=== PATIENT | female | born 1935 | race Hispanic/Latino ===

== ENCOUNTER 2023-08-13 11:28 | Inpatient (IN) | payer OTHER ==
[2023-08-13] MEDS ORDERED: Lorazepam 2 MG/ML VIAL ONE (11:46)
[2023-08-13 12:30] LABS: #Basophils 0.1 10x3/uL (0.0-0.2); #Monocytes 0.4 10x3/uL (0.0-1.1); #Neutrophils 11.8 10x3/uL (1.5-8.4); %Basophils 0.4 % (0.0-2.0); %Monocytes 3.2 % (0.0-10.0); %Neutrophils 88.1 % (40.0-75.0); Hematocrit 41.8 % (34.9-44.5); Hemoglobin 12.6 g/dL (12.0-15.5); Mean Corpuscular HGB CONC 30.1 g/dL (32.0-36.0); Mean Corpuscular Hemoglobin 29.3 pg (27.0-33.0); Mean Corpuscular Volume 97.2 fl (81.6-98.3); Mean Platelet Volume 12.2 fl (7.4-10.4); Platelet Count 185 10x3/uL (150-450); RBC Distribution Width 15.7 % (11.5-14.5); White Blood Cell (WBC) Count 13.4 10x3/uL (3.5-10.5)
[2023-08-13 12:55] LABS: ALT (SGPT) 25 U/L (8-55); AST (SGOT) 35 U/L (5-34); Albumin 3.4 g/dL (3.4-4.8); Alkaline Phosphatase 75 U/L (40-110); Anion Gap 20 mmol/L (10-20); BUN (Urea Nitrogen) 52 mg/dL (9.8-20.1); Bilirubin, Total 0.6 mg/dL (0.2-1.2); Calc. Creatinine Clearance 0 mL/min (70-130); Calcium 9.2 mg/dL (7.8-10.44); Carbon Dioxide 20 mmol/L (23-31); Chloride 126 mmol/L (98-107); Critical Call Chem Troponin I NUR.DG3@1254; Critical Call Chemistry NUR.DG3@1254; Estimated GFR 48; Globulin 3.6 g/dL (2.4-3.5); Glucose 178 mg/dL (83-110); Potassium 2.7 mmol/L (3.5-5.1); Sodium 163 mmol/L (136-145)
[2023-08-13 14:37] LABS: Magnesium 2.8 mg/dL (1.6-2.6)
[2023-08-13 15:34] LABS: Lactic Acid 3.2 mmol/L (0.5-2.2)
[2023-08-13 15:48] LABS: Troponin I 1.179 ng/mL (< 0.028)
[2023-08-13] MEDS ORDERED: hydrALAZINE 20 MG/ML VIAL SLOW IVP PRN (15:55)
[2023-08-13] MEDS ORDERED: Labetalol HCl 100 MG/20 ML VIAL SLOW IVP PRN (16:59)
[2023-08-13] MEDS: Dextrose 5% in Water 1,000 ML IV SCH (17:07)
[2023-08-13] MEDS ORDERED: Aspirin 300 MG Suppository ONE (17:10)
[2023-08-13] MEDS: Potassium Chloride 20 MEQ in Premix 1 BAG IVPB SCH (17:14)
[2023-08-13] MEDS: Aspirin 300 MG Suppository PR SCH (17:14)
[2023-08-13] MEDS ORDERED: hydrALAZINE 20 MG/ML VIAL ONE (17:16)
[2023-08-13] MEDS: hydrALAZINE 20 MG/ML VIAL SLOW IVP PRN (17:34)
[2023-08-13] MEDS ORDERED: Potassium Chloride 20 MEQ (100 mL) BAG ONE (17:36)
[2023-08-13] MEDS: Heparin 5,000 UNITS/ML VIAL SC SCH (20:30)
[2023-08-13 22:27] LABS: Anion Gap 19 mmol/L (10-20); BUN (Urea Nitrogen) 56 mg/dL (9.8-20.1); Calc. Creatinine Clearance 21 mL/min (70-130); Calcium 8.8 mg/dL (7.8-10.44); Carbon Dioxide 19 mmol/L (23-31); Chloride 125 mmol/L (98-107); Estimated GFR 47; Glucose 198 mg/dL (83-110); Potassium 3.1 mmol/L (3.5-5.1)
[2023-08-13 22:32] LABS: Critical Call Chemistry @NOTIFIED ICU.AW2; Sodium 160 mmol/L (136-145)
[2023-08-14 07:56] LABS: Anion Gap 14 mmol/L (10-20); BUN (Urea Nitrogen) 58 mg/dL (9.8-20.1); Calc. Creatinine Clearance 22 mL/min (70-130); Calcium 8.3 mg/dL (7.8-10.44); Carbon Dioxide 20 mmol/L (23-31); Chloride 124 mmol/L (98-107); Estimated GFR 50; Glucose 187 mg/dL (83-110); Potassium 3.2 mmol/L (3.5-5.1)
[2023-08-14 08:00] LABS: Critical Call Chemistry ICU.SP @0758; Sodium 155 mmol/L (136-145)
[2023-08-14 08:29] LABS: #Eosinphils 0.1 10x3/uL (0.0-0.5); #Monocytes 0.5 10x3/uL (0.0-1.1); #Neutrophils 9.6 10x3/uL (1.5-8.4); %Basophils 0.3 % (0.0-2.0); %Eosinophils 0.6 % (0.0-6.0); %Lymphocytes 17.3 % (18.0-47.0); %Monocytes 4.2 % (0.0-10.0); %Neutrophils 77.4 % (40.0-75.0); Hematocrit 35.6 % (34.9-44.5); Hemoglobin 11.1 g/dL (12.0-15.5); Mean Corpuscular HGB CONC 31.2 g/dL (32.0-36.0); Mean Corpuscular Hemoglobin 29.7 pg (27.0-33.0); Mean Corpuscular Volume 95.2 fl (81.6-98.3); Mean Platelet Volume 12.7 fl (7.4-10.4); Platelet Count 116 10x3/uL (150-450); RBC Distribution Width 15.9 % (11.5-14.5); Red Blood Cell (RBC) Count 3.74 10x6/uL (3.90-5.03); White Blood Cell (WBC) Count 11.4 10x3/uL (3.5-10.5)
[2023-08-14] MEDS: Aspirin 300 MG Suppository PR SCH (08:54)
[2023-08-14] MEDS: Potassium Chloride 20 MEQ in Premix 1 BAG IVPB SCH (08:56)
[2023-08-14] MEDS: Dextrose 5% in Water 1,000 ML IV SCH (08:58)
[2023-08-14 14:01] LABS: Anion Gap 12 mmol/L (10-20); BUN (Urea Nitrogen) 55 mg/dL (9.8-20.1); Calc. Creatinine Clearance 24 mL/min (70-130); Calcium 8.1 mg/dL (7.8-10.44); Carbon Dioxide 21 mmol/L (23-31); Chloride 122 mmol/L (98-107); Estimated GFR 55; Glucose 221 mg/dL (83-110); Potassium 4.1 mmol/L (3.5-5.1)
[2023-08-14 14:07] LABS: Critical Call Chemistry ICU.RH1@!1406; Sodium 151 mmol/L (136-145)
[2023-08-14 14:12] LABS: Critical Call Chem Troponin I ICU.RH1@1412; Troponin I 1.192 ng/mL (< 0.028)
[2023-08-14 19:08] LABS: Anion Gap 15 mmol/L (10-20); BUN (Urea Nitrogen) 54 mg/dL (9.8-20.1); Calc. Creatinine Clearance 26 mL/min (70-130); Calcium 8.1 mg/dL (7.8-10.44); Carbon Dioxide 18 mmol/L (23-31); Chloride 121 mmol/L (98-107); Estimated GFR 58; Glucose 219 mg/dL (83-110); Potassium 3.9 mmol/L (3.5-5.1); Sodium 150 mmol/L (136-145)
[2023-08-14] MEDS: Fluticasone Propionate Nasal Spray 16 gm Bottle NASAL SCH (21:16)
[2023-08-14] MEDS: Acetaminophen 650 MG Suppository PR PRN (21:17)
[2023-08-15 07:28] LABS: Hematocrit 37.1 % (34.9-44.5); Hemoglobin 11.5 g/dL (12.0-15.5); MDiff Complete? YES; Mean Corpuscular Hemoglobin 29.5 pg (27.0-33.0); Mean Corpuscular Volume 95.1 fl (81.6-98.3); Mean Platelet Volume 12.3 fl (7.4-10.4); Platelet Count 127 10x3/uL (150-450); RBC Distribution Width 15.4 % (11.5-14.5); White Blood Cell (WBC) Count 8.6 10x3/uL (3.5-10.5)
[2023-08-15 07:36] LABS: Anion Gap 14 mmol/L (10-20); BUN (Urea Nitrogen) 50 mg/dL (9.8-20.1); Calc. Creatinine Clearance 28 mL/min (70-130); Calcium 8.1 mg/dL (7.8-10.44); Carbon Dioxide 18 mmol/L (23-31); Chloride 114 mmol/L (98-107); Estimated GFR 65; Glucose 190 mg/dL (83-110); Potassium 3.6 mmol/L (3.5-5.1); Sodium 142 mmol/L (136-145)
[2023-08-15 08:16] LABS: Band 12 % (5-11); Neutrophil 74 % (42-75)
[2023-08-15 08:17] LABS: Monocytes 4 % (0-10)
[2023-08-15 08:18] LABS: Lymphocytes 8 % (21-51); Reactive Lymphocytes 2 % (0-10)
[2023-08-15 08:22] LABS: Burr Cells SLIGHT = 2-5 cells (100X) (0-1/hpf)
[2023-08-15] MEDS: Dextrose 5 % And 0.9 % NaCl 1,000 ML IV SCH (08:41)
[2023-08-15] MEDS: Ciprofloxacin 0.3% Ophth Soln 2.5 ml Bottle EA EYE SCH (12:06)
[2023-08-15] MEDS: Latanoprost 0.005% Ophth Soln 2.5 ml Bottle EA EYE SCH (21:08)
[2023-08-16] MEDS: D5W-AA 4.25% with LYTES 1,000 ML IV SCH (00:39)
[2023-08-16 07:48] LABS: Anion Gap 12 mmol/L (10-20); BUN (Urea Nitrogen) 87 mg/dL (9.8-20.1); Calc. Creatinine Clearance 25 mL/min (70-130); Calcium 7.9 mg/dL (7.8-10.44); Carbon Dioxide 16 mmol/L (23-31); Chloride 112 mmol/L (98-107); Estimated GFR 55; Glucose 262 mg/dL (83-110); Potassium 3.4 mmol/L (3.5-5.1); Sodium 137 mmol/L (136-145)
[2023-08-16 08:28] LABS: Hematocrit 28.4 % (34.9-44.5); Hemoglobin 9.4 g/dL (12.0-15.5); Mean Corpuscular HGB CONC 33.1 g/dL (32.0-36.0); Mean Corpuscular Hemoglobin 30.4 pg (27.0-33.0); Mean Corpuscular Volume 91.9 fl (81.6-98.3); RBC Distribution Width 15.2 % (11.5-14.5); Red Blood Cell (RBC) Count 3.09 10x6/uL (3.90-5.03); White Blood Cell (WBC) Count 9.8 10x3/uL (3.5-10.5)
[2023-08-16] MEDS: Bacitracin-Polymyxin B Opth Oint 3.5 GM TUBE L EYE PRN (08:50)
[2023-08-16 08:53] LABS: MDiff Complete? YES
[2023-08-16 08:55] LABS: Mean Platelet Volume 13.4 fl (7.4-10.4); Platelet Count 93 10x3/uL (150-450)
[2023-08-16 09:53] LABS: Band 16 % (5-11); Lymphocytes 6 % (21-51); Monocytes 3 % (0-10); Neutrophil 72 % (42-75); Reactive Lymphocytes 3 % (0-10)
[2023-08-16 09:55] LABS: Platelet Adequacy Comment Appears Decreased
[2023-08-16 09:59] LABS: Burr Cells SLIGHT = 2-5 cells (100X) (0-1/hpf)
[2023-08-16 17:53] LABS: Anion Gap 11 mmol/L (10-20); BUN (Urea Nitrogen) 95 mg/dL (9.8-20.1); Calc. Creatinine Clearance 28 mL/min (70-130); Calcium 7.9 mg/dL (7.8-10.44); Carbon Dioxide 17 mmol/L (23-31); Chloride 112 mmol/L (98-107); Estimated GFR 64; Glucose 227 mg/dL (83-110); Potassium 3.4 mmol/L (3.5-5.1); Sodium 137 mmol/L (136-145)
[2023-08-16] MEDS: cefTRIAXone\\ROCEPHIN 1 GM in Sodium Chloride 0.9% 100 ML IVPB SCH (19:27)
[2023-08-17 03:02] LABS: Bilirubin Neg (Negative); Blood, Urine 25 (Negative); Clarity Clear (Clear); Glucose, Urine (Dipstick) Normal (Negative); Ketone, Urine Negative (Negative); Leukocyte 500 (Negative); Nitrite Negative (Negative); Protein, Urine (Dipstick) 30 mg/dl (Neg-Trace); Urobilinogen Normal mg/dL (Less than 2); pH, Urine 6.5 (5.0-9.0)
[2023-08-17 03:21] LABS: Bacteria/HPF 2+ HPF (None Seen); CAUTI Indications for Culture Alt mental st,lethar; RBC/HPF 0-3 HPF (0-3); Squamous Epithelial 0-3 HPF (0-3); WBC/HPF 21-50 HPF (0-3)
[2023-08-17 03:24] LABS: Urine Culture Reflex Yes Yes
[2023-08-17 06:50] LABS: Anion Gap 13 mmol/L (10-20); BUN (Urea Nitrogen) 99 mg/dL (9.8-20.1); Calc. Creatinine Clearance 30 mL/min (70-130); Carbon Dioxide 16 mmol/L (23-31); Chloride 112 mmol/L (98-107); Estimated GFR 70; Glucose 142 mg/dL (83-110); Potassium 3.1 mmol/L (3.5-5.1); Sodium 138 mmol/L (136-145)
[2023-08-17 07:10] LABS: Hematocrit 26.4 % (34.9-44.5); Hemoglobin 8.7 g/dL (12.0-15.5); Mean Corpuscular Hemoglobin 29.8 pg (27.0-33.0); Mean Corpuscular Volume 90.4 fl (81.6-98.3); Mean Platelet Volume 12.8 fl (7.4-10.4); Platelet Count 95 10x3/uL (150-450); RBC Distribution Width 15.1 % (11.5-14.5); Red Blood Cell (RBC) Count 2.92 10x6/uL (3.90-5.03); White Blood Cell (WBC) Count 7.1 10x3/uL (3.5-10.5)
[2023-08-17 07:12] LABS: MDiff Complete? YES
[2023-08-17 08:28] LABS: Band 1 % (5-11); Lymphocytes 11 % (21-51); Monocytes 4 % (0-10); Neutrophil 84 % (42-75)
[2023-08-17 08:29] LABS: Platelet Adequacy Comment Appears Decreased
[2023-08-17 08:30] LABS: Burr Cells SLIGHT = 2-5 cells (100X) (0-1/hpf)
[2023-08-17] MEDS: Potassium Chloride 10 MEQ in Premix 1 BAG IVPB SCH (12:28)
[2023-08-17] MEDS: Pantoprazole 40 MG VIAL IVP SCH (20:54)
[2023-08-18 08:30] LABS: #Eosinphils 0.1 10x3/uL (0.0-0.5); #Monocytes 0.3 10x3/uL (0.0-1.1); #Neutrophils 5.7 10x3/uL (1.5-8.4); %Basophils 0.1 % (0.0-2.0); %Eosinophils 1.8 % (0.0-6.0); %Neutrophils 84.7 % (40.0-75.0); Hematocrit 27.6 % (34.9-44.5); Mean Corpuscular HGB CONC 32.6 g/dL (32.0-36.0); Mean Corpuscular Hemoglobin 30.2 pg (27.0-33.0); Mean Corpuscular Volume 92.6 fl (81.6-98.3); Mean Platelet Volume 13.4 fl (7.4-10.4); Platelet Count 63 10x3/uL (150-450); RBC Distribution Width 15.3 % (11.5-14.5); Red Blood Cell (RBC) Count 2.98 10x6/uL (3.90-5.03); White Blood Cell (WBC) Count 6.8 10x3/uL (3.5-10.5)
[2023-08-18 08:32] LABS: Platelet Adequacy Comment Appears Decreased
[2023-08-18 11:41] LABS: Anion Gap 12 mmol/L (10-20); BUN (Urea Nitrogen) 96 mg/dL (9.8-20.1); Calc. Creatinine Clearance 31 mL/min (70-130); Calcium 8.2 mg/dL (7.8-10.44); Carbon Dioxide 17 mmol/L (23-31); Chloride 114 mmol/L (98-107); Estimated GFR 74; Glucose 188 mg/dL (83-110); Magnesium 2.6 mg/dL (1.6-2.6); Potassium 4.1 mmol/L (3.5-5.1); Sodium 139 mmol/L (136-145)
[2023-08-18] MEDS ORDERED: Morphine 2 MG/ML VIAL SLOW IVP PRN (16:59)
[2023-08-18] MEDS: Atropine Sulfate 1 mg/10 ml Syringe IVP SCH (23:05)
[2023-08-19 05:56] LABS: #Eosinphils 0.1 10x3/uL (0.0-0.5); #Monocytes 0.4 10x3/uL (0.0-1.1); #Neutrophils 4.8 10x3/uL (1.5-8.4); %Basophils 0.2 % (0.0-2.0); %Eosinophils 1.3 % (0.0-6.0); %Lymphocytes 10.6 % (18.0-47.0); %Monocytes 6.1 % (0.0-10.0); %Neutrophils 81.3 % (40.0-75.0); Hematocrit 30.5 % (34.9-44.5); Hemoglobin 9.9 g/dL (12.0-15.5); Mean Corpuscular HGB CONC 32.5 g/dL (32.0-36.0); Mean Corpuscular Hemoglobin 29.9 pg (27.0-33.0); Mean Corpuscular Volume 92.1 fl (81.6-98.3); Mean Platelet Volume 12.6 fl (7.4-10.4); Platelet Count 138 10x3/uL (150-450); RBC Distribution Width 15.3 % (11.5-14.5); Red Blood Cell (RBC) Count 3.31 10x6/uL (3.90-5.03); White Blood Cell (WBC) Count 5.9 10x3/uL (3.5-10.5)
[2023-08-19 06:02] LABS: Anion Gap 13 mmol/L (10-20); BUN (Urea Nitrogen) 97 mg/dL (9.8-20.1); Calc. Creatinine Clearance 32 mL/min (70-130); Calcium 8.4 mg/dL (7.8-10.44); Carbon Dioxide 16 mmol/L (23-31); Chloride 114 mmol/L (98-107); Estimated GFR 75; Glucose 188 mg/dL (83-110); Potassium 4.6 mmol/L (3.5-5.1); Sodium 138 mmol/L (136-145)
[2023-08-19 06:48] VITALS: BMI 19.8
[2023-08-19 07:53] LABS: Critical Call Chem Troponin I NUR.SL11 AT 0752; Troponin I 0.225 ng/mL (< 0.028)
[2023-08-19] MEDS: Bisacodyl 10 MG SUPP PR PRN (21:00)
[2023-08-19] MEDS: Fluticasone Propionate Nasal Spray 16 gm Bottle NASAL SCH (21:06)
[2023-08-20 12:59] LABS: #Eosinphils 0.1 10x3/uL (0.0-0.5); #Monocytes 0.5 10x3/uL (0.0-1.1); #Neutrophils 7.7 10x3/uL (1.5-8.4); %Basophils 0.1 % (0.0-2.0); %Eosinophils 0.6 % (0.0-6.0); %Lymphocytes 7.9 % (18.0-47.0); %Monocytes 5.7 % (0.0-10.0); %Neutrophils 84.9 % (40.0-75.0); Hematocrit 28.1 % (34.9-44.5); Mean Corpuscular Hemoglobin 29.5 pg (27.0-33.0); Mean Corpuscular Volume 92.1 fl (81.6-98.3); Mean Platelet Volume 11.7 fl (7.4-10.4); Platelet Count 173 10x3/uL (150-450); RBC Distribution Width 15.9 % (11.5-14.5); Red Blood Cell (RBC) Count 3.05 10x6/uL (3.90-5.03); White Blood Cell (WBC) Count 9.1 10x3/uL (3.5-10.5)
[2023-08-20 13:07] LABS: Anion Gap 13 mmol/L (10-20); BUN (Urea Nitrogen) 84 mg/dL (9.8-20.1); Calc. Creatinine Clearance 32 mL/min (70-130); Calcium 8.2 mg/dL (7.8-10.44); Carbon Dioxide 17 mmol/L (23-31); Chloride 119 mmol/L (98-107); Estimated GFR 73; Glucose 208 mg/dL (83-110); Potassium 4.2 mmol/L (3.5-5.1); Sodium 145 mmol/L (136-145)
[2023-08-20] MEDS: Dextrose 5% in Water 1,000 ML IV SCH (15:28)
[2023-08-21 06:57] LABS: #Monocytes 0.6 10x3/uL (0.0-1.1); #Neutrophils 9.8 10x3/uL (1.5-8.4); %Basophils 0.2 % (0.0-2.0); %Eosinophils 0.4 % (0.0-6.0); %Lymphocytes 8.1 % (18.0-47.0); %Monocytes 5.1 % (0.0-10.0); %Neutrophils 85.5 % (40.0-75.0); Hemoglobin 9.7 g/dL (12.0-15.5); Mean Corpuscular HGB CONC 32.3 g/dL (32.0-36.0); Mean Corpuscular Hemoglobin 29.7 pg (27.0-33.0); Mean Corpuscular Volume 91.7 fl (81.6-98.3); Mean Platelet Volume 11.5 fl (7.4-10.4); Platelet Count 190 10x3/uL (150-450); Red Blood Cell (RBC) Count 3.27 10x6/uL (3.90-5.03); White Blood Cell (WBC) Count 11.4 10x3/uL (3.5-10.5)
[2023-08-21 07:10] LABS: Anion Gap 15 mmol/L (10-20); BUN (Urea Nitrogen) 79 mg/dL (9.8-20.1); Calc. Creatinine Clearance 30 mL/min (70-130); Calcium 8.2 mg/dL (7.8-10.44); Carbon Dioxide 13 mmol/L (23-31); Chloride 113 mmol/L (98-107); Estimated GFR 66; Glucose 283 mg/dL (83-110); Potassium 4.1 mmol/L (3.5-5.1); Sodium 137 mmol/L (136-145)
[2023-08-21] MEDS: Acetaminophen 325 MG TAB PO PRN (21:21)
[2023-08-21] MEDS: Ondansetron PF 4 MG/2 ML Vial IVP PRN (21:22)
[2023-08-22 08:21] LABS: #Eosinphils 0.1 10x3/uL (0.0-0.5); #Monocytes 0.5 10x3/uL (0.0-1.1); #Neutrophils 11.1 10x3/uL (1.5-8.4); %Basophils 0.2 % (0.0-2.0); %Eosinophils 0.6 % (0.0-6.0); %Lymphocytes 7.9 % (18.0-47.0); %Neutrophils 86.8 % (40.0-75.0); Mean Corpuscular HGB CONC 32.1 g/dL (32.0-36.0); Mean Corpuscular Volume 93.3 fl (81.6-98.3); Mean Platelet Volume 11.2 fl (7.4-10.4); Platelet Count 207 10x3/uL (150-450); RBC Distribution Width 16.3 % (11.5-14.5); White Blood Cell (WBC) Count 12.9 10x3/uL (3.5-10.5)
[2023-08-22 08:41] LABS: Anion Gap 14 mmol/L (10-20); BUN (Urea Nitrogen) 83 mg/dL (9.8-20.1); Calc. Creatinine Clearance 35 mL/min (70-130); Calcium 7.4 mg/dL (7.8-10.44); Carbon Dioxide 16 mmol/L (23-31); Chloride 112 mmol/L (98-107); Estimated GFR 67; Glucose 195 mg/dL (83-110); Potassium 4.9 mmol/L (3.5-5.1); Sodium 137 mmol/L (136-145)
[2023-08-22 08:49] VITALS: BP 160/61; TEMP 97.6
[2023-08-22 09:06] LABS: Prothrombin Time 10.3 sec (9.5-12.1)
[2023-08-22] MEDS: Bisacodyl 10 MG SUPP PR SCH (11:00)
== END 2023-08-22 14:30 | disposition expired ==
LOC: CSHERS 11:28 → CSHERHOLD 13:21 → CSHIMCU 18:09 → CSHTELE 08-16 15:54
PROVIDERS: ADMIT Internal Medicine; ATTEND Internal Medicine
PROC: 0DH67UZ Insertion of Feeding Device into Stomach, Via Natural or Artificial Opening (ICD-10-PCS; principal; 2023-08-20)
DX: I44.2 Atrioventricular block, complete (principal); G93.41 Metabolic encephalopathy; I21.A1 Myocardial infarction type 2; E87.0 Hyperosmolality and hypernatremia; I69.351 Hemiplegia and hemiparesis following cerebral infarction affecting right dominant side; E44.0 Moderate protein-calorie malnutrition; E87.1 Hypo-osmolality and hyponatremia; Z51.5 Encounter for palliative care; Z66 Do not resuscitate; I10 Essential (primary) hypertension; F03.90 Unspecified dementia, unspecified severity, without behavioral disturbance, psychotic disturbance, mood disturbance, and anxiety; E87.6 Hypokalemia; D64.9 Anemia, unspecified; L89.152 Pressure ulcer of sacral region, stage 2; E86.0 Dehydration; R13.10 Dysphagia, unspecified; I95.9 Hypotension, unspecified; R00.1 Bradycardia, unspecified; K59.00 Constipation, unspecified; R50.9 Fever, unspecified; L89.611 Pressure ulcer of right heel, stage 1; T17.910A Gastric contents in respiratory tract, part unspecified causing asphyxiation, initial encounter; I46.9 Cardiac arrest, cause unspecified; Z68.22 Body mass index [BMI] 22.0-22.9, adult; Z88.7 Allergy status to serum and vaccine; Z98.890 Other specified postprocedural states
CPT/HCPCS: 36415; 36416; 70450; 71045; 74018; 80048; 80053; 81001; 83605; 83735; 84145; 84443; 84484; 85025; 85610; 87040; 87086; 93005; 93010; 93306; 94760; 94762; 96374; 97139; C9113; J0360; J0461; J0696; J1644; J2060; J2405; J3480; J3490; J7042; J7070